=== PATIENT | male | born 1950 | race Two or more races ===

== ENCOUNTER 2017-11-11 00:50 | Emergency (ER) | payer OTHER ==
[~2017-11-11] VITALS: Ht 162.6 cm; Wt 81.6 kg
== END 2017-11-11 02:12 | disposition designated cancer center or children's hospital (05) ==
LOC: ER 00:50
DX: J81.1 Chronic pulmonary edema (principal); N18.6 End stage renal disease; Z99.2 Dependence on renal dialysis